=== PATIENT | male | born 1945 | race Two or more races ===

== ENCOUNTER 2021-05-11 15:57 | Emergency (ER) | payer MEDICARE ==
[~2021-05-11] VITALS: Ht 172.7 cm; Wt 99.8 kg
== END 2021-05-11 16:59 | disposition home or self-care (01) ==
LOC: FSED 16:03
DX: T16.2XXA Foreign body in left ear, initial encounter (principal); I10 Essential (primary) hypertension; E11.9 Type 2 diabetes mellitus without complications
CPT/HCPCS: 99283

== ENCOUNTER 2021-06-04 12:18 | Emergency (ER) | payer MEDICARE ==
[~2021-06-04] VITALS: Ht 172.7 cm; Wt 107.7 kg
[2021-06-04] MEDS ORDERED: INDOMETHACIN50 MG PO (12:54)
[2021-06-04] MEDS ORDERED: LIPITOR20 MG PO (12:59)
[2021-06-04] MEDS ORDERED: LISINOPRIL10 MG PO (12:59)
[2021-06-04] MEDS ORDERED: JANUVIA50 MG PO (12:59)
[2021-06-04] MEDS ORDERED: ZETIA10 MG PO (12:59)
[2021-06-04] MEDS ORDERED: FUROSEMIDE40 MG PO (12:59)
[2021-06-04] MEDS ORDERED: IBUPROFEN 600 MG TAB PO NR (13:00)
[2021-06-04] MEDS ORDERED: DEXAMETHASONE 4 MG TAB PO NR (13:00)
[2021-06-04] MEDS ORDERED: PREDNISONE50 MG PO (13:07)
[2021-06-04] MEDS ORDERED: DEXAMETHASONE SOD PHOS INJ 4 MG/ML SDV ONE (13:23)
[2021-06-04] MEDS ORDERED: IBUPROFEN 600 MG TAB ONE (13:24)
== END 2021-06-04 13:19 | disposition home or self-care (01) ==
LOC: FSED 12:32
DX: M10.071 Idiopathic gout, right ankle and foot (principal); I10 Essential (primary) hypertension; E11.9 Type 2 diabetes mellitus without complications; E78.5 Hyperlipidemia, unspecified; Z87.891 Personal history of nicotine dependence; Z88.0 Allergy status to penicillin
CPT/HCPCS: 99282; J1100

== ENCOUNTER 2022-02-28 17:47 | Emergency (ER) | payer MEDICARE ==
[~2022-02-28 17:47] MED LIST: FUROSEMIDE40 MG PO; INDOMETHACIN50 MG PO; JANUVIA50 MG PO; LIPITOR20 MG PO; LISINOPRIL10 MG PO; PREDNISONE50 MG PO; ZETIA10 MG PO
== END 2022-02-28 17:55 | disposition left against medical advice (07) ==
LOC: FSED 17:53
DX: R73.9 Hyperglycemia, unspecified (principal)